=== PATIENT | male | born 1955 | race African-American/Black ===

== ENCOUNTER 2017-11-16 08:44 | Inpatient (IN) ==
[2017-11-16] MEDS ORDERED: ONDANSETRON 4 MG/2 ML VIAL IV PRN (12:05)
[2017-11-16] MEDS ORDERED: ALBUTEROL 2.5 MG/3 ML NEB RESP TX PRN (12:05)
[2017-11-16] MEDS ORDERED: ACETAMINOPHEN 325 MG TABLET PO PRN (12:09)
[2017-11-16] MEDS ORDERED: LORazepam 2 MG/1 ML VIAL IV PRN (12:13)
[2017-11-16] MEDS ORDERED: FOSPHENYTOIN 100 MG.PE/2 ML VIAL IV SCH (12:30)
[2017-11-16 13:08] LABS: Basophils % 0.3 % (0.0-0.8); Hematocrit 43.3 VOL% (42.0-52.0); Hemoglobin 14.9 GM/DL (14.0-18.0); Immature Granulocytes % 0.5 %; Immature Granulocytes Absolute 0.06 #; Lymphocytes # 2.1 10*3/uL (1.4-4.0); Lymphocytes % 18.2 % (21.2-54.2); Mean Corpuscular HGB Conc 34.4 GM/DL (32-36); Mean Corpuscular Hemoglobin 31 PG (27-34); Mean Corpuscular Volume 89.6 FL (87-102); Mean Platelet Volume 10.2 FL (9.6-12.0); Monocytes # 0.7 10*3/uL (0.11-0.8); Monocytes % 5.7 % (1.7-12.7); Neutrophils # 8.6 10*3/uL (1.4-7.4); Neutrophils % 75.3 % (38.7-73.9); Platelet Count 133 T/CUMM (130-400); Red Blood Count 4.83 MC/CUMM (3.8-5.5); Red Cell Distribution Width 12.6 % (9.3-17.3); White Blood Count 11.5 T/CUMM (4-12)
[2017-11-16] MEDS: SODIUM CHLORIDE 0.9% 1,000 ML IV SCH (13:18)
[2017-11-16] MEDS: PANTOPRAZOLE 40 MG TABLET PO SCH (13:23)
[2017-11-16 13:28] LABS: Apearance,Urine CLEAR (Clear); Bilirubin,Urine Negative (Negative); Blood, Urine Small mg/dL (Negative); Glucose,Urine (UA) Negative (Negative); Ketones,Urine Negative (Negative); Mucus,Urine Occasional /LPF (Occasional); Nitrite,Urine Negative (Negative); Protein,Urine Negative; Sperm,Urine Occasional /HPF (Negative); Urine Color Colorless (Yellow); Urine Specific Gravity 1.004 (1.001-1.035); Urine Urobilinogen < 2.0 EU/DL (0.2-1.0)
[2017-11-16 13:35] LABS: INR 1.4
[2017-11-16 13:41] LABS: Albumin 4.1 G/DL (3.4-5.0); Bilirubin,Total 0.6 MG/DL (0.2-1.0); Osmolality,Calculated 271.8 MOS/KG (273-304); Potassium 4.6 MMOL/L (3.5-5.1); Risk Ratio 2.67; Total Protein 8.1 G/DL (6.4-8.3)
[2017-11-16] MEDS: PHENYTOIN ER 100 MG CAPSULE PO SCH ×2 (14:58→21:30)
[2017-11-16] MEDS: ASPIRIN 325 MG TABLET PO SCH (14:58)
[2017-11-16] MEDS: LOSARTAN 50 MG TABLET PO SCH (14:58)
[2017-11-16] MEDS: METOPROLOL TARTRATE 25 MG TABLET PO SCH ×2 (14:58→21:30)
[2017-11-16] MEDS: hydrALAZINE 20 MG/1 ML VIAL IV PRN ×2 (14:59→22:22)
[2017-11-16] MEDS: HALOPERIDOL 5 MG TABLET PO SCH ×2 (15:00→21:29)
[2017-11-16 16:02] LABS: CKMB % 1.4 %
[2017-11-16 16:05] LABS: Troponin I Only 0.569 NG/ML (0.00-0.045)
[2017-11-16 17:13] LABS: Barbiturates Screen,Urine Negative (Negative); Benzodiazepines Screen,Urine Negative (Negative); Cannabinoid Screen,Urine Negative (Negative); Opiate Screen,Urine Negative (Negative); Phencyclidine Screen,Urine Negative (Negative)
[2017-11-16 20:12] LABS: Troponin I Only 0.438 NG/ML (0.00-0.045)
[2017-11-16] MEDS ORDERED: levETIRAcetam 500 MG TABLET PO SCH (21:00)
[2017-11-16] MEDS: BENZTROPINE 1 MG TABLET PO SCH (21:29)
[2017-11-16] MEDS: levETIRAcetam 500 MG TABLET PO SCH (21:30)
[2017-11-16] MEDS: SIMVASTATIN 40 MG TABLET PO SCH (21:30)
[2017-11-17 05:03] LABS: Basophils % 0.4 % (0.0-0.8); Eosinophils % 0.2 % (0.00-10.9); Hematocrit 43.4 VOL% (42.0-52.0); Hemoglobin 15.2 GM/DL (14.0-18.0); Immature Granulocytes % 0.3 %; Immature Granulocytes Absolute 0.03 #; Lymphocytes # 3.1 10*3/uL (1.4-4.0); Lymphocytes % 32.1 % (21.2-54.2); Mean Corpuscular Hemoglobin 31 PG (27-34); Mean Corpuscular Volume 87.5 FL (87-102); Mean Platelet Volume 9.9 FL (9.6-12.0); Monocytes # 0.8 10*3/uL (0.11-0.8); Monocytes % 8.6 % (1.7-12.7); Neutrophils # 5.7 10*3/uL (1.4-7.4); Neutrophils % 58.4 % (38.7-73.9); Platelet Count 139 T/CUMM (130-400); Red Blood Count 4.96 MC/CUMM (3.8-5.5); Red Cell Distribution Width 13.1 % (9.3-17.3); White Blood Count 9.8 T/CUMM (4-12)
[2017-11-17 05:28] LABS: INR 1.5; PT Patient Result 15.2 SECS
[2017-11-17 05:49] LABS: Calcium 8.5 MG/DL (8.5-10.1); Osmolality,Calculated 279.4 MOS/KG (273-304)
[2017-11-17] MEDS: METOPROLOL TARTRATE 25 MG TABLET PO SCH (07:45)
[2017-11-17] MEDS: PHENYTOIN ER 100 MG CAPSULE PO SCH ×3 (07:45→20:10)
[2017-11-17] MEDS: PANTOPRAZOLE 40 MG TABLET PO SCH (07:45)
[2017-11-17] MEDS: LOSARTAN 50 MG TABLET PO SCH (07:45)
[2017-11-17] MEDS: HALOPERIDOL 5 MG TABLET PO SCH ×2 (07:45→20:10)
[2017-11-17] MEDS: levETIRAcetam 500 MG TABLET PO SCH ×2 (07:45→20:10)
[2017-11-17] MEDS: ASPIRIN 325 MG TABLET PO SCH (07:45)
[2017-11-17] MEDS: CHOLECALCIFEROL 400 UNIT TABLET PO SCH (07:45)
[2017-11-17] MEDS: BENZTROPINE 1 MG TABLET PO SCH ×2 (07:45→20:10)
[2017-11-17] MEDS: SODIUM CHLORIDE 0.9% 1,000 ML IV SCH ×2 (07:48)
[2017-11-17] MEDS ORDERED: PNEUMOCOCCAL VACCINE (13 VALENT) 0.5 ML SYRINGE IM ONE (09:00)
[2017-11-17] MEDS: METOPROLOL TARTRATE 50 MG TABLET PO SCH ×2 (11:37→20:10)
[2017-11-17] MEDS ORDERED: WARFARIN 3 MG TABLET PO SCH (18:00)
[2017-11-17] MEDS: SIMVASTATIN 40 MG TABLET PO SCH (20:10)
[2017-11-18] MEDS: levETIRAcetam 500 MG TABLET PO SCH (08:19)
[2017-11-18] MEDS: METOPROLOL TARTRATE 50 MG TABLET PO SCH (08:20)
[2017-11-18] MEDS: PHENYTOIN ER 100 MG CAPSULE PO SCH (08:20)
[2017-11-18] MEDS: LOSARTAN 50 MG TABLET PO SCH (08:20)
[2017-11-18] MEDS: BENZTROPINE 1 MG TABLET PO SCH (08:20)
[2017-11-18] MEDS: HALOPERIDOL 5 MG TABLET PO SCH (08:20)
[2017-11-18] MEDS: PANTOPRAZOLE 40 MG TABLET PO SCH (08:20)
[2017-11-18] MEDS: CHOLECALCIFEROL 400 UNIT TABLET PO SCH (08:20)
[2017-11-18 08:25] LABS: INR 1.4; PT Patient Result 14.3 SECS
[2017-11-18 12:50] VITALS: BP 115/69
[2017-11-21] MEDS ORDERED: WARFARIN 5 MG TABLET PO SCH (18:00)
== END 2017-11-18 14:08 | disposition home or self-care (01) | DRG 101 ==
LOC: N.ICU 11:45 → SUATTDRO 11:45 → N.4E 11-17 10:00
PROVIDERS: ADMIT Internal Medicine; ATTEND Internal Medicine